=== PATIENT | female | born 1955 | race Two or more races ===

== ENCOUNTER 2024-06-17 09:28 | Emergency (ER) | payer OTHER, BC ==
[2024-06-17 10:08] VITALS: BP 168/86; PULSE 86; RESP 18; TEMP 97.5; BMI 36.6
[2024-06-17] MEDS ORDERED: KETOROLAC TROMETHAMINE 30 MG/1 ML VIAL ONE (10:33)
[2024-06-17] MEDS: KETOROLAC TROMETHAMINE 60 MG/2 ML VIAL IM ONE (10:49)
[2024-06-17] MEDS ORDERED: CycloBENZAprine HCL 10 MG TABLET (FP) ONE (11:47)
[2024-06-17] MEDS: CycloBENZAprine HCL 10 MG TABLET (FP) PO ONE (11:49)
== END 2024-06-17 12:12 | disposition home or self-care (01) ==
LOC: JER 09:28
PROC: 3E0233Z Introduction of Anti-inflammatory into Muscle, Percutaneous Approach (ICD-10-PCS; principal; 2024-06-17)
DX: M79.652 Pain in left thigh (principal); R20.2 Paresthesia of skin
CPT/HCPCS: 93971-TC; 99285-25